=== PATIENT | female | born 1995 | race Caucasian/White ===

== ENCOUNTER 2023-11-06 04:17 | Inpatient (IN) | payer BC ==
[~2023-11-06] VITALS: Ht 157.5 cm; Wt 61.8 kg
[2023-11-06] VITALS (16 sets, daily range): BP systolic 99–137; BP diastolic 58–88; PULSE 75–96; TEMP 97.4–98.5
--- NOTE | 2023-11-06 04:20 | NUR ---
0420- PT ARRIVED WITH C/O CONTRACTIONS INCREASING IN STRENTGH AND FREQUENCY FOR LAST 12 HOURS. DENIES LOF OR VAGINAL BLEEDING. REPORTS ACTIVE FM. DENIES ANY PROBLEMS OR COMPLICATIONS. COPING WELL WITH CTX.
[2023-11-06] MEDS ORDERED: LR 1,000 ML IV SCH (04:45)
[2023-11-06] MEDS ORDERED: PRENATAL TABLET PO (05:11)
[2023-11-06] MEDS ORDERED: IRON TABLETS325 MG PO (05:12)
[2023-11-06 05:26] LABS: BASO % 0.4 % (0.0-2.0); EOS # 0.1 K/mm3 (0.0-0.7); EOS % 0.8 % (0.0-4.0); GRAN # 5.2 K/mm3 (1.4-6.5); HEMOGLOBIN 11.1 g/dl (12.5-16.0); LYMPH # 1.5 K/mm3 (1.2-3.4); LYMPH % 20.3 % (20.0-51.0); MEAN CELL VOLUME 82 fl (80.0-100.0); MEAN CORPUSCULAR HEMOGLOBIN 26 pg (27-31); MEAN CORPUSCULAR HGB CONC 32 g/dl (33.0-37.0); MEAN PLATELET VOLUME 11.7 fl (7.4-10.4); MONO # 0.6 K/mm3 (0.1-0.6); MONO % 8.1 % (1.7-9.3); PLATELET COUNT 200 K/mm3 (130-400); RED BLOOD COUNT 4.26 M/mm3 (4.10-5.30); REDCELL DISTRIBUTION WIDTH-CV 15.9 % (11.5-14.5)
[2023-11-06 05:35] LABS: HEMATOCRIT 34.7 % (37.0-47.0)
--- NOTE | 2023-11-06 05:35 | NUR ---
EFM REMOVED FOR PT TO AMBULATE
--- NOTE | 2023-11-06 06:30 | NUR ---
REPORT RC'D FROM [employer], INTRODUCED THIS NURSE TO PT AND , PT WELL CONTROLLED WITH CTX, BREATHING THROUGH, DISCUSSED PLAN OF CARE, POSITIONED UP ON L.SIDE, DENIES WANTING ANYTHING FOR PAIN AT THIS TIME.
[2023-11-06] MEDS ORDERED: LR & Oxytocin 500 ML IV ONE (07:12)
--- NOTE | 2023-11-06 07:30 | NUR ---
AT 0800, OF VIABLE MALE 9//9 APGARS OVER SECOND DEGREE PERINEUM BY , RN X2 AT BEDSIDE, BABE TO MOMS ABDOMEN FOLLOWING DELIVERY, POSITIVE BONDING NOTED, AT SIDE.
--- NOTE | 2023-11-06 07:30 | NUR ---
ROLES IN ROOM, AT BEDSIDE, VIEWS STRIP, SVE AND SROM WITH CLEAR FLUIT RET AT 0730, FHR 120, DRAnaROLES WILL REMAIN ON UNIT UNTIL BABY IS DELIVERED, PT REPOSITIONED UP ON L.SIDE, AT SIDE SUPPORTIVE.
--- NOTE | 2023-11-06 08:00 | NUR ---
AT 0755, PT FEELING PUSHY WITH CTX, ROLES IN ROOM AT 0756. SET UP FOR DELIVERY, SVE BY ROLES AT 0758, PT COMPLETE AND BEGINS PUSHING WELL WITH CTX, SEE L&D SUMMARY.
--- NOTE | 2023-11-06 08:15 | NUR ---
SPONTANEOUS PLACENTA AT 0806, PITOCIN INFUSING PER ORDER AT 333MU/MIN, EMPTIES BLADDER WITH RED YEIMY CATHETER AT 0811 OF 250CC OF CLEAR YELLOW URINE, FINISHES 2ND DEGREE REPAIR, FUNDUS MASSAGED FIRM UNDER 1 AND ICE TO BOTTOM. BABE IN MOMS ARMS AND DAD AT SIDE.
[2023-11-06] MEDS ORDERED: Witch Hazel 50% Pads Bulk TUB TP PRN (08:30)
[2023-11-06] MEDS ORDERED: Naloxone 0.4 MG/ML VIAL IV PRN (08:30)
[2023-11-06] MEDS ORDERED: Magnes Hydrox (MOM) 80 MG/ML 30 ML CUP PO PRN (08:30)
[2023-11-06] MEDS ORDERED: Mag/Al Hydrox/Simeth Susp 30 ML CUP PO PRN (08:30)
[2023-11-06] MEDS ORDERED: Phenylephrine/Mineral Oil/Petrolatum 57 GM TUBE RC PRN (08:30)
[2023-11-06] MEDS ORDERED: Acetaminophen 500 MG TAB PO SCH (08:30)
[2023-11-06] MEDS ORDERED: Loratadine 10 MG TAB PO PRN (08:30)
[2023-11-06] MEDS ORDERED: Ibuprofen 800 MG TAB PO SCH (08:30)
[2023-11-06] MEDS ORDERED: oxyCODONE 5 MG TAB PO PRN (08:30)
[2023-11-06] MEDS ORDERED: Measles/Mumps/Rubella Virus Vaccine Live w Diluent 0.5 ML VIAL SQ SCH (08:30)
--- NOTE | 2023-11-06 08:30 | NUR ---
, BABE TO RIGHT SIDE, GOOD LATCH, +BONDING, FUNDUS FIRM, MINIMAL BLEEDING, DAD AT SIDE.
--- NOTE | 2023-11-06 08:45 | NUR ---
IBUPROFEN 800MG GIVEN PO WITH TYLENOL 1000MG GIVEN FOR ANTICIPATORY CRAMPING, PERINEAL PAIN, BABE TO LEFT BREAST, MOM ORDERING BREAKFAST, PITOCIN INFUSING AT 125CC/HR PER ORDER.
[2023-11-06] MEDS ORDERED: Prenatal Vitamins/Iron/FA TAB PO SCH (09:00)
--- NOTE | 2023-11-06 09:45 | NUR ---
SITTING UP IN BED EATING BREAKAST, SIPS WATER, BABE AT SIDE, GOOD APPETITE.
--- NOTE | 2023-11-06 10:25 | NUR ---
AT 1025, IVF INFUSED, CAPPED, UP TO BATHROOM, DENIES DIZZINESS OR SOB, INSTR ON TOBIAS CARE, UNABLE TO VOID AT THIS TIME, ICE PACK AND TUCKS TO PERINEUM, GOWN CHANGED, UP IN IRBY TO ROOM 214, ORIENTED TO RM, CALL LIGHT, PLAN OF CARE, INSTRUCTED TO CALL FOR FIRST VOID CHECK, ENCOURAGED FLUIDS, IN ROOM WITH PT, DENIES NEEDS AT THIS TIME.
--- NOTE | 2023-11-06 11:45 | NUR ---
UP TO BATHROOM, VOIDS 500CC OF CLEAR YELLOW URINE, TOBIAS CARE DONE, NEW ICE PACK AND TUCKS APPLIED, RET TO BED, WILL DO 2 MORE VOID CHECKS AND THEN DC INT, PT VERBALIZES UNDERSTANDING AND WILL CALL WITH NEXT VOID.
[2023-11-06] MEDS ORDERED: MOTRIN 800800 MG/TAB PO (15:50)
[2023-11-06] MEDS ORDERED: Sennosides/Docusate 8.6-50 MG TAB PO SCH (17:00)
[2023-11-06] MEDS ORDERED: traZODone 50 MG TAB PO PRN (21:00)
[2023-11-07 05:00] VITALS: BP 100/69; PULSE 88; TEMP 97.9
[2023-11-07 07:36] VITALS: BP 103/68; PULSE 89; TEMP 97.9
== END 2023-11-07 11:55 | disposition home or self-care (01) | DRG 807 ==
LOC: LDRO 04:17 → LDR 04:20 → OB 10:25
PROVIDERS: Obstetrics & Gynecology; ADMIT Obstetrics & Gynecology
PROC: 10E0XZZ Delivery of Products of Conception, External Approach (ICD-10-PCS; principal; 2023-11-06)
PROC: 0KQM0ZZ Repair Perineum Muscle, Open Approach (ICD-10-PCS; 2023-11-06)
DX: O70.1 Second degree perineal laceration during delivery (principal); Z37.0 Single live birth; O80 Encounter for full-term uncomplicated delivery; Z3A.40 40 weeks gestation of pregnancy
CPT/HCPCS: J2590; J7120